=== PATIENT | male | born 1935 | race Caucasian/White ===

== ENCOUNTER → 2016-10-16 | Outpatient (CLI) | payer MEDICARE ==
[~2016-10-16] MED LIST: /ATOR40TA PO; /CLON1TA PO; /GLIP10TAB PO; /PANT40TA PO; ASPI325T5 PO; CLOP75TA2 PO; CORE25TA PO; DOXA4TAB PO; DULC10SU9 PR; GLYB5TAB5 PO; HYDR25TA PO; ISOS10TA PO; ISOS20TA2 PO; LASI40TA PO; LOSA100T36 PO; NITR4TASL SL; OMEP20CA3 PO; VERA120T2 PO; ZEST10TA4 PO
--- NOTE | 2016-10-16 15:21 | REP ---
RENAL ULTRASOUND: Real-time sonographic evaluation of kidneys performed. Kidneys are normal in size, right kidney measuring 10.5 x 5.6 x 4.9 cm and left kidney 12.9 x 6.3 x 4.6 cm. Echotexture of the right kidney is somewhat increased. There is no hydronephrosis bilaterally. No definite renal mass or stone is seen. Urinary bladder is not well distended and not well evaluated. IMPRESSION: Right kidney is mildly smaller in size than the left kidney with somewhat echogenic cortex. No hydronephrosis. Signed by Viraj Herman MD 10/16/2016 05:23 P
== END ==
LOC: M RAD 14:19
PROVIDERS: ATTEND Internal Medicine Nephrology
DX: N18.5 Chronic kidney disease, stage 5 (principal); E11.22 Type 2 diabetes mellitus with diabetic chronic kidney disease

== ENCOUNTER → 2016-10-25 | Outpatient (CLI) | payer MEDICARE ==
--- NOTE | 2016-10-25 12:16 | REP ---
Clinical: Headache . Comparison: None . Findings: The ventricles, sulci, and cisterns are normal in position and appearance. Herman-white differentiation is maintained. No acute intracranial hemorrhage, mass/mass effect, pathology or trauma/injury. No evidence for acute infarction. No extra-axial fluid collection. Calvarium is intact. Paranasal sinuses and mastoid air cells are clear. Impression: Normal noncontrast head CT. No evidence for acute intracranial pathology or trauma/injury. Signed by Dangelo Acosta MD 10/25/2016 12:08 P
== END ==
LOC: M RAD 11:40
PROVIDERS: ATTEND Family Medicine
DX: R51 Headache (principal)
CPT/HCPCS: 70450; 80048; G0463

== ENCOUNTER → 2016-10-25 | Outpatient (REF) | payer MEDICARE ==
[2016-10-25 12:27] LABS: CALCIUM LEVEL 8.7 MG/DL (8.8-10.2); CREATININE FOR GFR 5.53 MG/DL (0.70-1.30); GLOMERULAR FILTRATION RATE 10.6 (>35); POTASSIUM SERUM 4.7 MEQ/L (3.5-5.1)
== END ==
LOC: M SFHCADAM 10:52
PROVIDERS: ATTEND Family Medicine
DX: R51 Headache (principal)

== ENCOUNTER → 2016-11-21 | Outpatient (REF) | payer MEDICARE ==
[2016-11-21 19:10] LABS: MEAN CORPUSCULAR HEMOGLOBIN 29.3 pg (27.0-33.0); MEAN CORPUSCULAR HGB CONC 32.2 g/dl (32.0-36.5); MEAN CORPUSCULAR VOLUME 90.8 fl (80.0-96.0); RED CELL DISTRIBUTION WIDTH 13.6 % (11.5-14.5); WHITE BLOOD COUNT 6.7 K/mm3 (4.0-10.0)
[2016-11-21 19:15] LABS: ALBUMIN 2.8 GM/DL (3.2-5.2); CALCIUM LEVEL 7.4 MG/DL (8.8-10.2); CREATININE FOR GFR 5.25 MG/DL (0.70-1.30); GLOMERULAR FILTRATION RATE 11.2 (>35); MAGNESIUM LEVEL 1.4 MG/DL (1.8-2.4); PHOSPHORUS LEVEL 7.1 MG/DL (2.5-4.9); POTASSIUM SERUM 3.9 MEQ/L (3.5-5.1)
== END ==
LOC: M SFHCADAM 15:08
PROVIDERS: ATTEND Physician Assistant Medical
DX: N18.5 Chronic kidney disease, stage 5 (principal); I50.42 Chronic combined systolic (congestive) and diastolic (congestive) heart failure
CPT/HCPCS: 80069; 83735; 85027; G0463